=== PATIENT | female | born 2000 | race Caucasian/White ===

== ENCOUNTER 2024-02-14 04:40 | Emergency (ER) | payer BC ==
[~2024-02-14] VITALS: Ht 167.6 cm; Wt 63.5 kg
[2024-02-14 04:40] VITALS: BP 131/79; PULSE 101; RESP 16; TEMP 98.2; O2SAT 96
== END 2024-02-14 04:54 ==
LOC: MED 04:40
DX: Z02.89 Encounter for other administrative examinations (principal)
CPT/HCPCS: 99283